=== PATIENT | male | born 1960 | race Caucasian/White ===

== ENCOUNTER → 2019-04-19 | Day surgery (SDC) | payer OTHER ==
[~2019-04-19] MED LIST: FENTANYL CITRATE/PF 100MCG/2 ML INJ ONE; HYOSCYAMINE 0.125 MG TAB ONE; KETAMINE HCL INJ 50 MG/ML 10 ML VIAL ONE; LOSARTAN POTAS100 MG PO; LOSARTAN-HCTZ1 EACH PO; MIDAZOLAM HCL 2 MG/2 ML VIAL ONE; OMEPRAZOLE40 MG PO; PROPOFOL IV EMULSION 10 MG/ML 50 ML VIAL ONE; RANITIDINE HCL150 M1 PO; RANITIDINE HCL150 MG
[2019-04-19 16:50] VITALS: BP 133/78
== END | disposition home or self-care (01) ==
LOC: OR 11:59
PROVIDERS: ATTEND Internal Medicine Gastroenterology
DX: Z09 Encounter for follow-up examination after completed treatment for conditions other than malignant neoplasm (principal); D12.3 Benign neoplasm of transverse colon; D13.1 Benign neoplasm of stomach; K29.60 Other gastritis without bleeding; K64.8 Other hemorrhoids; K20.8 Other esophagitis; Z98.84 Bariatric surgery status; I10 Essential (primary) hypertension; E66.01 Morbid (severe) obesity due to excess calories; I49.3 Ventricular premature depolarization; Z01.810 Encounter for preprocedural cardiovascular examination; Z68.43 Body mass index [BMI] 50.0-59.9, adult; Z80.0 Family history of malignant neoplasm of digestive organs
CPT/HCPCS: 45384; 45385; 93005; J2250; J2704; J3010; 45378